=== PATIENT | male | born 1940 | race Caucasian/White ===

== ENCOUNTER 2017-02-01 09:00 | Emergency (ER) | payer MEDICARE ==
[~2017-02-01 09:00] MED LIST: Iopamidol 370 76% 100 ML VIAL ONE
[2017-02-01 09:27] LABS: #Basophils 0.2 thou/uL (0.0-0.2); #Lymphocytes 1.3 thou/uL (1.20-3.40); #Monocytes 0.8 thou/uL (0.11-0.59); #Neutrophils 5.7 thou/uL (1.40-6.50); %Basophils 1.8 % (0.0-1.0); %Lymphocytes 14.5 % (21.0-51.0); %Monocytes 8.9 % (0.0-10.0); %Neutrophils 63.8 % (42.0-75.0); Mean Corpuscular Hemoglobin 30.2 pg (27.0-31.0); Mean Corpuscular Volume 91.7 fl (80.0-94.0); Mean Platelet Volume 6.5 fL (7.4-10.4); Platelet Count 265 thou/uL (130-400); RBC Distribution Width 12.8 % (11.5-14.5); White Blood Cell (WBC) Count 8.9 thou/uL (4.8-10.8)
[2017-02-01 09:33] LABS: Base Excess 3.3 mEq/L (-2 - +2); Hemoglobin (Hb) 12.4 g/dL (12.6-17.4)
[2017-02-01 09:43] LABS: ALT (SGPT) 17 U/L (8-55); AST (SGOT) 20 U/L (5-34); Albumin 4.1 g/dL (3.4-4.8); Alkaline Phosphatase 80 U/L (40-150); Anion Gap 12 mmol/L (10-20); BUN (Urea Nitrogen) 18 mg/dL (8.4-25.7); Bilirubin, Total 0.5 mg/dL (0.2-1.2); Calc. Creatinine Clearance 0 mL/min (70-130); Calcium 9.4 mg/dL (7.8-10.44); Carbon Dioxide 31 mmol/L (23-31); Chloride 100 mmol/L (98-107); Estimated GFR-MDRD Greater than 90; Globulin 3.3 g/dL (2.4-3.5); Glucose 91 mg/dL (83-110); Potassium 4.2 mmol/L (3.5-5.1); Protein, Total 7.4 g/dL (5.8-8.1); Sodium 139 mmol/L (136-145)
[2017-02-01] MEDS ORDERED: Ketorolac Tromethamine 30 MG/ML VIAL ONE (10:12)
--- NOTE | 2017-02-01 21:05 | RAD ---
CHEST TWO VIEWS: 02/01/17 Comparison is made with the 06/02/16 study. The heart is normal in size. The lungs are hyperexpanded suggestive of COPD. There are no lobar infi ltrates or large effusions. On the lateral view, there is an anterior compression fracture of approximately the T11 vertebra. Th is was not present on the May 2016 chest x-ray. I do not know if it is recent or subacute. IMPRESSION: 1. T11 compression fracture, a new finding since May. The anterior height is reduced by ab out 20 to 25%. 2. COPD. POS: HOME
--- NOTE | 2017-02-01 21:11 | CT ---
CT ABDOMEN AND PELVIS WITH CONTRAST 02/01/[address] of the abdomen and pelvis was performed for evaluation following trauma. Axial slices were acquired, then coronal and sagittal reconstructions were done. The lung bases are clear. No significant infiltrate, effusion, or pneumothorax was seen. As best as I can see, there were no obvious rib fractures, however, there was an anterior compression fracture of the T11 vertebral body. I cannot tell if this is recent or subacute, however, it was not present in late 2016, so has occurred since that time. The liver, spleen, pancreas, gallbladder, right kidney, all showed no acute findings. There was no e vidence of hematoma or laceration of any major organ. 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 An abdominal aortic aneurysm is present. It is multilobed with the largest dilation being in the infrarenal region, measuring about 3 cm in AP diameter. The bowel is nondistended. There is no sign of obstruction, free air, or significant free fluid. CT of the pelvis showed no pelvic masses, inflammatory changes, or large amounts of fluid. The bony pelvis appears intact. The prostate is enlarge. Degenerative changes are present in the spine. IMPRESSION: 1. Anterior compression fracture of T11, a new finding since late 2015. 2. Lungs clear and major organs intact. 3. 3 cm abdominal aortic aneurysm. 4. Prostatic enlargement. Findings discussed with Dr. Nevarez at 11:01 on 02/01/17. POS: HOME
== END 2017-02-01 11:15 | disposition home or self-care (01) ==
LOC: BURERS 09:00
DX: S20.211A Contusion of right front wall of thorax, initial encounter (principal); E78.5 Hyperlipidemia, unspecified; E78.00 Pure hypercholesterolemia, unspecified; J44.9 Chronic obstructive pulmonary disease, unspecified; F41.9 Anxiety disorder, unspecified; Z87.891 Personal history of nicotine dependence; Z79.899 Other long term (current) drug therapy; W01.198A Fall on same level from slipping, tripping and stumbling with subsequent striking against other object, initial encounter
CPT/HCPCS: 71020; 74177; 80053; 82805; 83735; 85025; 93005; 96374; A4216; J1885